=== PATIENT | female | born 1995 | race Caucasian/White ===

== ENCOUNTER 2018-10-08 14:47 | Inpatient (IN) ==
[2018-10-08] MEDS ORDERED: ONDANSETRON 4 MG TAB.RAPDIS PO PRN (15:02)
[2018-10-08] MEDS ORDERED: OXYTOCIN/DEXTROSE 5%-WATER 30 UNITS/500 ML BAG IV ONE (15:02)
[2018-10-08] MEDS ORDERED: RINGER'S SOLUTION,LACTATED 1,000 ML IV ONE (15:02)
[2018-10-08] MEDS ORDERED: BUPIVACAINE HCL/0.9 % NACL/PF 250 ML EP PRN (22:26)
[2018-10-08] MEDS ORDERED: NALOXONE HCL 1 MG/1 ML SYRG IV PRN (22:26)
[2018-10-08] MEDS ORDERED: ONDANSETRON HCL/PF 2 MG/ML VIAL IV PRN (22:26)
[2018-10-08] MEDS ORDERED: BUPIVACAINE HCL/PF 30 ML VIAL EP SCH (22:30)
[2018-10-08] MEDS ORDERED: LIDOCAINE HCL 50 ML VIAL ONE (22:50)
--- NOTE | 2018-10-08 22:50 | ANES ---
Anesthesia Pre Procedure Eval Vitals/Labs: Last Vital Signs Temp 37 C 10/08/18 15:27 Pulse 101 H 10/08/18 15:27 Resp 16 10/08/18 15:27 BP 109/69 10/08/18 15:27 Pulse Ox 98 10/08/18 15:27 HOME MEDICATIONS albuterol sulfate HFA 90 mcg/actuation aerosol inhaler 2 inh IH Q6H PRN 02/22/18 [Last Taken Unknown] vitamin,calcium,awmlympz-axqx-fzhvu acid tablet 1 tab PO DAILY 03/04/18 [Last Taken 06/08/18 10:30] ferrous sulfate 325 mg (65 mg iron) tablet 325 mg PO DAILY #30 tab 07/16/18 [Last Taken Unknown] breast pump See Dose Instructions .ROUTE .MEDSUPPLY #1 ea 09/30/18 [Last Taken Unknown] Allergies/Adverse Reactions: Allergies Allergy/AdvReac Type Severity Reaction Status Date / Time promethazine [From Phenergan] AdvReac Mild whole body Verified 10/08/18 15:00 tingling, flushing - Planned Procedure Planned Procedure: Labor epidural Medication List Reviewed:: Yes Allergies Verified: Yes Medical History (Updated 08/17/18 @ 14:25 by John Hassan DO) Asthma (Chronic) Vertigo (Chronic) intermittent Anemia Onset Date: 07/15/18 w/ Right arm fracture Onset Date: Unknown Acne Onset Date: Unknown Asthma, mild persistent Onset Date: Unknown exercise induce. No hospitalizations. Inhaler last used one month ago. 03/04/18 Body piercing Onset Date: Unknown Vertigo Onset Date: ~2014 Wears glasses Onset Date: Unknown Irregular menses Onset Date: Unknown Sprain, strain Onset Date: 11/21/13 Right knee Torn meniscus Onset Date: ~11/2013 Surgical History (Updated 06/08/18 @ 17:16 by Miguel May MD) H/O arthroscopic knee surgery Onset Date: 07/2015 Rt meniscus Family History (Updated 03/04/18 @ 13:25 by Danni Paiz RN) Grandfather Cancer Lung Lung cancer Grandmother Hypertension Biliary cirrhosis Primary Mother Alive and well Father Alive and well Aunt Breast cancer - Family Anesthesia History Family History:: no untoward family reactions to anesthesia, no familial bleeding tendencies, no family history of clotting disorders, no family history of premature - Airway/Neck/Teeth Within Normal Limits:: Yes - Anesthesia Assessment and Plan ASA Class: PS, II Anesthesia Type Plan: Epidural
[2018-10-08] MEDS ORDERED: LIDOCAINE HCL/EPINEPHRINE 20 ML VIAL ONE (22:51)
--- NOTE | 2018-10-08 23:11 | ANES ---
Anesthesia Procedure Note Procedure Note: ANESTHESIA PROCEDURE NOTE Date of Procedure: 10/08/2018. Time of procedure: 2300. Performed by: Arvin Jackman CRNA Enrollment Services Dean: None. Preprocedure diagnosis: Active labor. Post procedure diagnosis: Same. Procedure: Insertion of labor epidural. Indications: The patient is a 23 -year-old female in active labor requesting labor epidural for pain management. Findings: See below. Details of the procedure: The patient was placed in a sitting position. DuraPrep as well as Betadine swabs X3 was applied to the patient's back. Patient was then draped in a sterile fashion. Lidocaine 1% was infiltrated to the skin and subcutaneous tissues at the level of the L3-4 interspace. The epidural space was identified using a 18-gauge Tuohy needle with [id number] technique. Epidural catheter was inserted to a depth of 10 centimeters at skin. Negative test dose was elicited using 3 mL of 2% preservative-free lidocaine plus epinephrine 1 200,000. The epidural catheter was then taped and secured in place. A loading dose of 8 mL of 0.25% preservative-free bupivacaine was administered to the epidural catheter after negative aspiration for blood and CSF. EBL: Minimal. Fluids: N/A. Specimen: N/A. Post procedure condition: The patient tolerated the procedure well. No complications were noted. Thank you for this consultation. Arvin Jackman CRNA
--- NOTE | 2018-10-08 23:12 | ANES ---
Post Anesthesia Assessment - Vital Signs Vitals: Last Vital Signs Temp 36.6 C 10/08/18 23:10 Pulse 90 10/08/18 23:10 Resp 16 10/08/18 23:10 BP 116/70 10/08/18 23:10 Pulse Ox 98 10/08/18 23:10 Airway Patency: Normal - Mental Status Level Of Consciousness: Awake - N/V Assessment Nausea/Vomiting Presence: None Dehydration:: No
[2018-10-08] MEDS: DEXTROSE 5%-LACTATED RINGERS 1,000 ML IV PRN (23:43)
[2018-10-09] MEDS: DEXTROSE 5%-LACTATED RINGERS 1,000 ML IV PRN (07:15)
--- NOTE | 2018-10-09 09:16 | HP ---
Chief Complaint - Chief Complaint Date of Service: 10/09/18 Time of Service: 09:15 Chief Complaint: contractions History of Present Illness: 23 yo at 39 6/7 weeks admitted originally for induction of labor but was found to be in labor on her own. This preganancy complicated by asthma, bilateral pelvieactasis. Rh positive Rubella immune GBS negative Medical History (Updated 10/09/18 @ 09:16 by John Hassan DO) Asthma (Chronic) Vertigo (Chronic) intermittent Anemia Onset Date: 07/15/18 w/ Right arm fracture Onset Date: Unknown Acne Onset Date: Unknown Asthma, mild persistent Onset Date: Unknown exercise induce. No hospitalizations. Inhaler last used one month ago. 03/04/18 Body piercing Onset Date: Unknown Vertigo Onset Date: ~2014 Wears glasses Onset Date: Unknown Irregular menses Onset Date: Unknown Sprain, strain Onset Date: 11/21/13 Right knee Torn meniscus Onset Date: ~11/2013 Surgical History: Surgical History (Updated 06/08/18 @ 17:16 by Miguel May MD) H/O arthroscopic knee surgery Onset Date: 07/2015 Rt meniscus Family History: Family History (Updated 03/04/18 @ 13:25 by Danni Paiz RN) Grandfather Cancer Lung Lung cancer Grandmother Hypertension Biliary cirrhosis Primary Mother Alive and well Father Alive and well Aunt Breast cancer Social History: Preferred Language Filipino Smoking Status Never smoker (Last Updated 10/08/18 @ 14:38 by John Hassan DO) No Social History Section defined Review Of Systems (GEN) - Review of Systems Generalized/Overall Review: Present: No Symptoms Reported EENTM: Present: No Symptoms Reported Respiratory: Present: No Symptoms Reported Cardiac: Present: No Symptoms Reported Abdominal: Present: No Symptoms Reported Genitourinary: Present: Other - contractions Musculoskeletal: Present: No Symptoms Reported Neurological: Present: No Symptoms Reported Skin: Present: No Symptoms Reported Endocrine: Present: No Symptoms Reported Immunizations: IMMUNIZATION HX Immunizations Up to Date Yes History of Influenza Vaccine No Allergies/Adverse Reactions: Allergies Allergy/AdvReac Type Severity Reaction Status Date / Time promethazine [From Phenergan] AdvReac Mild whole body Verified 10/08/18 15:00 tingling, flushing Home Medications: HOME MEDICATIONS albuterol sulfate HFA 90 mcg/actuation aerosol inhaler 2 inh IH Q6H PRN 02/22/18 [Last Taken Unknown] vitamin,calcium,pvivprhj-nzfi-rdaci acid tablet 1 tab PO DAILY 03/04/18 [Last Taken 06/08/18 10:30] ferrous sulfate 325 mg (65 mg iron) tablet 325 mg PO DAILY #30 tab 07/16/18 [Last Taken Unknown] breast pump See Dose Instructions .ROUTE .MEDSUPPLY #1 ea 09/30/18 [Last Taken Unknown] Exam - Exam Vital Signs: Vital Signs - Last Taken Temp 36.6 C 10/08/18 23:10 Pulse 90 10/08/18 23:10 Resp 16 10/08/18 23:10 BP 116/70 10/08/18 23:10 Pulse Ox 98 10/08/18 23:10 Constitutional: Present: Alert, Oriented x3, Cooperative, No distress ENT Exam: Present: hearing grossly normal Breasts: Present: Exam deferred Respiratory: Present: lungs clear, no respiratory distress Cardiovascular/Chest: Present: normal peripheral pulses, regular rate, rhythm, no edema Abdomen: Present: soft, no rebound tenderness, other - gravid /Rectal: Present: Other - cervix 2/60/-3 to 4/80/-2 Extremity: Present: no pedal edema, no calf tenderness Skin Exam: Present: normal color, warm/dry, no cyanosis Lymphatic: Present: no adenopathy Neurologic: Present: alert, normal mood/affect, oriented x 3 Appearance: Present: appropriate appearance, appropriate insight Eye contact: Present: cooperative, good eye contact Thoughts: Present: normal thought pattern Diagnostic Studies: NST reactive UDS negative Assessment/Plan - Assessment/Plan (1) Labor established Assessment: Admit for routine managment of labor. Epidural and pitocin augmentation PRN. Problem: Acute (2) Asthma Problem: Chronic Qualifiers: Asthma severity: mild Asthma persistence: intermittent Asthma complication type: uncomplicated Qualified Code(s): J45.20 - Mild intermittent asthma, uncomplicated
--- NOTE | 2018-10-09 15:15 | PN ---
Progess Note - Interim Date: 10/09/18 Time: 15:04 Narrative: 10/09/18 15:04 Patient comfortable with epidural Vital sgins stable FHT 150, decreased BTBV, accelerations, no decelerations for since around 1340. Good BTBV prior to that time. Contractions q 3 min AROM - clear at 0720 this am Complete/+1 IMP/PLAN: 40 wk IUP in 2nd stage of labor. If delivery doesn't occur soon will rest baby again or assist delivery if low enough. Pitocin restarted at 1 mu/min since contractions were starting to space out and become less strong.
[2018-10-09] MEDS ORDERED: LIDOCAINE HCL 50 ML VIAL ONE (15:59)
[2018-10-09] MEDS ORDERED: LIDOCAINE HCL 50 ML VIAL IJ ONE ×2 (16:00)
[2018-10-09] MEDS ORDERED: ALBUTEROL SULFATE 2.5 MG/0.5 ML VIAL.NEB IH PRN ×2 (16:18→17:36)
--- NOTE | 2018-10-09 16:21 | OR ---
Operative Report - Dictated Report Narrative: Spontaneous vaginal delivery of a vigorously crying viable female at 1547 on 10/09/2018 with Apgars 9 and 9, weighing 3724 g in HAILEY position. Cord clamping delayed approximately 1 minute Placenta delivered complete, intact, with three vessel cord Estimated blood loss: 100 mL Anesthesia: Epidural and local anesthetic Lacerations: Second degree vaginal laceration (5 cm) repaired with 3-0 Vicryl Rapide History for MU History for Definition: * The number of deliveries resulting in a live the patient experienced prior to current hospitalization * The previous delivery of live twins or any live multiple gestation is considered one live event. *If primagravida or nulliparous is documented select zero for the number of previous live births. Live Events: Live Events: 0
[2018-10-09] MEDS ORDERED: IBUPROFEN 800 MG TABLET PO PRN (17:36)
[2018-10-09] MEDS ORDERED: SENNOSIDES 8.6 MG TABLET PO PRN (17:36)
[2018-10-09] MEDS ORDERED: BENZOCAINE/MENTHOL 81 SPRAY CAN TP PRN (17:36)
[2018-10-09] MEDS ORDERED: OXYTOCIN/DEXTROSE 5%-WATER 30 UNITS/500 ML BAG IV ONE (17:36)
[2018-10-09] MEDS ORDERED: HYDROCORTISONE 30 APPL TUBE TP PRN (17:36)
[2018-10-09] MEDS ORDERED: GLYCERIN/WITCH HAZEL LEAF 40 APPL BOX TP PRN (17:36)
[2018-10-09] MEDS ORDERED: oxyCODONE HCL/ACETAMINOPHEN 1 TAB TABLET PO PRN (17:36)
[2018-10-09] MEDS ORDERED: BISACODYL 10 MG SUPP.RECT RC PRN (17:36)
[2018-10-09] MEDS: IBUPROFEN 800 MG TABLET PO PRN (18:14)
[2018-10-09] MEDS: DOCUSATE SODIUM 100 MG CAPSULE PO SCH (21:23)
--- NOTE | 2018-10-10 08:16 | PN ---
Subjective - Date and Time Seen Date: 10/10/18 Time: 08:16 Objective - Vitals Vitals: Last Vital Signs Temp 36.3 C 10/10/18 00:06 Pulse 83 10/10/18 00:06 Resp 14 10/10/18 00:06 BP 103/65 10/10/18 00:06 Pulse Ox 97 10/10/18 00:06 Patient denies complaints. Breast-feeding and bonding well Lochia wnl Abdomen - soft, nontender Uterus - firm, at umbilicus - 1 No calf tenderness Impression: day #1 - s/p spontaneous vaginal delivery. Plan: Continue routine care Cauti Physician Documentation - Urinary Catheter Management Urethral ([place]) Date of Insertion: 10/08/18 Time of Insertion: 23:30 Assessment/Plan - Problems/Diagnosis (1) Labor established Problem: Acute (2) Asthma Problem: Chronic Qualifiers: Asthma severity: mild Asthma persistence: intermittent Asthma complication type: uncomplicated Qualified Code(s): J45.20 - Mild intermittent asthma, uncomplicated
[2018-10-10] MEDS: FERROUS SULFATE 325 MG TABLET PO SCH (08:39)
[2018-10-10] MEDS: DOCUSATE SODIUM 100 MG CAPSULE PO SCH ×2 (08:39→20:36)
[2018-10-10] MEDS: PRENATAL VITS96/IRON FUM/FOLIC 1 TAB TABLET PO SCH (08:39)
[2018-10-10] MEDS ORDERED: FERROUS SULFATE 325 MG TABLET PO SCH (09:00)
[2018-10-10] MEDS ORDERED: PRENATAL VITS96/IRON FUM/FOLIC 1 TAB TABLET PO SCH (09:00)
[2018-10-10] MEDS: IBUPROFEN 800 MG TABLET PO PRN (20:40)
[2018-10-11] MEDS: FERROUS SULFATE 325 MG TABLET PO SCH (09:20)
[2018-10-11] MEDS: DOCUSATE SODIUM 100 MG CAPSULE PO SCH (09:20)
[2018-10-11] MEDS: PRENATAL VITS96/IRON FUM/FOLIC 1 TAB TABLET PO SCH (09:20)
[2018-10-11 10:55] VITALS: BP 105/64
--- NOTE | 2018-10-11 12:30 | PN ---
Subjective - Date and Time Seen Date: 10/11/18 Time: 12:28 Objective - Vitals Vitals: Last Vital Signs Temp 36.6 C 10/11/18 07:00 Pulse 88 10/11/18 07:00 Resp 18 10/11/18 07:00 BP 105/64 10/11/18 07:00 Pulse Ox 98 10/11/18 07:00 Patient denies complaints. Breast-feeding well Lochia wnl Abdomen - soft, nontender Uterus - firm, at umbilicus - 2 No calf tenderness Impression: day #2 - s/p spontaneous vaginal delivery. Plan: Routine discharge instructions Cauti Physician Documentation - Urinary Catheter Management Urethral ([place]) Date of Insertion: 10/08/18 Time of Insertion: 23:30 Assessment/Plan - Problems/Diagnosis (1) Labor established Problem: Acute (2) Asthma Problem: Chronic Qualifiers: Asthma severity: mild Asthma persistence: intermittent Asthma complication type: uncomplicated Qualified Code(s): J45.20 - Mild intermittent asthma, uncomplicated
== END 2018-10-11 12:55 | disposition home or self-care (01) | DRG 807 ==
LOC: OB 14:47 → MS 10-10 12:10
PROVIDERS: ADMIT Obstetrics & Gynecology; ATTEND Obstetrics & Gynecology
CPT/HCPCS: 59025